=== PATIENT | female | born 1975 | race Caucasian/White ===

== ENCOUNTER 2018-01-20 10:45 | Emergency (ER) | END 2018-01-20 11:59 | disposition home or self-care (01) ==

== ENCOUNTER 2018-03-31 10:14 | Emergency (ER) | END 2018-03-31 12:58 | disposition home or self-care (01) ==

== ENCOUNTER 2018-05-14 09:49 | Emergency (ER) | payer MEDICAID ==
[~2018-05-14] VITALS: Ht 157.5 cm; Wt 85.6 kg
[~2018-05-14 09:49] MED LIST: ALBU8.5H8 INH; BISM262O23 PO; CYCL10TA7 PO; DOCU-144 PO; FER325 PO; HYDR-3498 PO; IBUP-1542 PO; NORE-89 PO; PROM6.2515 PO; TRAM50TA2 PO; ZOF8 PO
[2018-05-14 09:52] VITALS: PULSE 103; Ht 157.5 cm; Wt 85.6 kg
[2018-05-14] MEDS ORDERED: LIDOCAINE/MYLANTA 40 ML BTL PO STA (10:25)
[2018-05-14] MEDS ORDERED: BELLADONNA/PHENOBARBITAL TAB PO STA (10:25)
[2018-05-14] MEDS ORDERED: ACET500C5 PO (12:17)
[2018-05-14] MEDS ORDERED: SUCR1TAB56 PO (12:17)
[2018-05-14 12:41] VITALS: BP 144/83; RESP 18
--- NOTE | 2018-05-14 14:51 | ERD ---
ER Documentation Chief Complaint Chief Complaint EPIGASTRIC PAIN X 3 WEEKS, HX GASTRITIS HPI 43-year-old female presenting with epigastric pain times 3 weeks. Patient states that she has been to help alleviate with gas discomfort however has not no relief. Denies any vomiting. Denies chest pain or shortness of breath. Has had a long history of gastritis and states this feels similar. Denies medical problems. Allergic to morphine. Surgical history denies. Social history denies ROS All systems reviewed and are negative except as per history of present illness. Medications Home Meds Active Scripts Sucralfate* (Carafate*) 1 Gm Tab, 1 GM PO BID, #10 TAB Prov:MEHNAZ RODRIGUEZ PA-C 05/14/18 Acetaminophen* (Tylophen*) 500 Mg Capsule, 1 CAP PO Q6H PRN for PAIN AND OR ELEVATED TEMP, #20 CAP Prov:MEHNAZ RODRIGUEZ PA-C 05/14/18 Promethazine Hcl* (Promethazine Hcl* Syrup) 6.25 Mg/5 Ml Syrup, 6.25 MG PO Q6H PRN for COUGH, #100 ML Prov:MEHNAZ RODRIGUEZ PA-C 03/31/18 Albuterol Sulfate* (Proair HFA*) 8.5 Gm Hfa.aer.ad, 2 PUFF INH Q4, #1 INHALER Prov:MEHNAZ RODRIGUEZ PA-C 03/31/18 Docusate Sodium* (Colace*) 100 Mg Capsule, 100 MG PO TID, #30 CAP Prov:MEHNAZ RODRIGUEZ PA-C 03/31/18 Ferrous Sulfate* (Ferrous Sulfate*) 325 Mg Tabec, 325 MG PO DAILY, #30 TAB Prov:MEHNAZ RODRIGUEZ PA-C 03/31/18 Norethindrone AC-Eth Estradiol (Loestrin 21 1.5-30 Tablet) 1 Each Tablet, 1 EACH PO DAILY, #28 TAB Prov:MEHNAZ RODRIGUEZ PA-C 03/31/18 Cyclobenzaprine Hcl* (Cyclobenzaprine Hcl*) 10 Mg Tablet, 10 MG PO TID, #20 TAB Prov:BONILLA ALBRECHT MD 01/27/16 Tramadol HCl (Tramadol HCl) 50 Mg Tablet, 50 MG PO Q4 PRN for PAIN, #20 TAB Prov:BONILLA ALBRECHT MD 01/27/16 Ibuprofen* (Motrin*) 600 Mg Tab, 600 MG PO Q6, #20 TAB Prov:BONILLA ALBRECHT MD 01/27/16 Ondansetron Hcl* (Zofran* ODT) 8 mg -ODT Tab.disper, 8 MG PO Q6 PRN for NAUSEA AND/OR VOMITING, #8 TAB Prov:BONILLA ALBRECHT MD 10/11/15 Ibuprofen* (Motrin*) 600 Mg Tab, 600 MG PO Q6, #20 TAB Prov:OBNILLA ALBRECHT MD 10/11/15 Bismuth Subsalicylate* (Pepto-Bismol*) 262 Mg/15 Ml Oral.susp, 15 ML PO Q3H PRN for DIARRHEA for 5 Days, ML 8 oz Prov:BONILLA ALBRECHT MD 01/02/15 Ondansetron Hcl* (Zofran* ODT) 8 mg -ODT Tab.disper, 8 MG PO Q6 PRN for NAUSEA AND/OR VOMITING, #8 TAB Prov:BONILLA ALBRECHT MD 01/02/15 Hydrocodone Bit-Acetaminophen* ([place]*) 5-325 Mg Tab, 1 TAB PO Q6 PRN for PAIN, #10 TAB Prov:BONILLA ALBRECHT MD 01/02/15 Allergies Allergies: Coded Allergies: No Known Allergy (Unverified , 01/27/16) PMhx/Soc History of Surgery: Yes (c section) Hx Alcohol Use: No Hx Substance Use: No Hx Tobacco Use: No Smoking Status: Never smoker FmHx Family History: No diabetes, No coronary disease, No other Physical Exam Vitals Vital Signs Date Temp Pulse Resp B/P (MAP) Pulse Ox O2 O2 Flow FiO2 Time Delivery Rate 05/14/18 98.9 18 144/83 100 12:41 (103) 05/14/18 98.9 103 18 144/83 100 09:52 (103) Physical Exam GENERAL: The patient is well-appearing, well-nourished, in no acute distress HEENT: Atraumatic. Conjunctivae are pink. Pupils equal, round, and reactive to light. There is no scleral icterus. Tympanic membranes clear bilaterally. Oropharynx clear. CHEST: Clear to auscultation bilaterally. There are no rales, wheezes or rhonchi. HEART: Regular rate and rhythm. No murmurs, clicks, rubs or gallops. No S3 or S4. ABDOMEN:Soft, nontender and nondistended. Good bowel sounds. No rebound or guarding. No gross peritonitis. No gross organomegaly or masses. Result Diagram: 05/14/18 1039 05/14/18 1039 Results 24 hrs Laboratory Tests Test 05/14/18 10:39 05/14/18 10:40 White Blood Count 8.0 10^3/ul Red Blood Count 4.10 10^6/ul Hemoglobin 8.4 g/dl Hematocrit 29.1 % Mean Corpuscular Volume 71.0 fl Mean Corpuscular Hemoglobin 20.5 pg Mean Corpuscular Hemoglobin Concent 28.9 g/dl Red Cell Distribution Width 16.8 % Platelet Count 558 10^3/UL Mean Platelet Volume 9.5 fl Immature Granulocytes % 0.200 % Neutrophils % 53.8 % Lymphocytes % 34.2 % Monocytes % 6.2 % Eosinophils % 4.5 % Basophils % 1.1 % Nucleated Red Blood Cells % 0.0 /100WBC Immature Granulocytes # 0.020 10^3/ul Neutrophils # 4.3 10^3/ul Lymphocytes # 2.7 10^3/ul Monocytes # 0.5 10^3/ul Eosinophils # 0.4 10^3/ul Basophils # 0.1 10^3/ul Nucleated Red Blood Cells # 0.0 10^3/ul Urine Color YELLOW Urine Clarity SLIGHTLY CLOUDY Urine pH 5.0 Urine Specific [place] 1.020 Urine Ketones NEGATIVE mg/dL Urine Nitrite NEGATIVE mg/dL Urine Bilirubin NEGATIVE mg/dL Urine Urobilinogen NEGATIVE mg/dL Urine Leukocyte Esterase TRACE Aman/ul Urine Microscopic RBC 1 /HPF Urine Microscopic WBC 2 /HPF Urine Squamous Epithelial Cells FEW /HPF Urine Bacteria FEW /HPF Urine Hemoglobin NEGATIVE mg/dL Urine Glucose NEGATIVE mg/dL Urine Total Protein NEGATIVE mg/dl Sodium Level 138 mmol/L Potassium Level 4.0 mmol/L Chloride Level 105 mmol/L Carbon Dioxide Level 23 mmol/L Anion Gap 10 Blood Urea Nitrogen 9 mg/dl Creatinine 0.55 mg/dl Est Glomerular Filtrat Rate mL/min > 60 mL/min Glucose Level 138 mg/dl Calcium Level 9.3 mg/dl Total Bilirubin 0.3 mg/dl Direct Bilirubin 0.00 mg/dl Indirect Bilirubin 0.3 mg/dl Aspartate Amino Transf (AST/SGOT) 21 IU/L Alanine Aminotransferase (ALT/SGPT) 12 IU/L Alkaline Phosphatase 63 IU/L Total Protein 9.0 g/dl Albumin 4.5 g/dl Globulin 4.50 g/dl Albumin/Globulin Ratio 1.00 Lipase 83 U/L POC Beta HCG, Qualitative NEGATIVE Current Medications Medications Dose Sig/Oliver Start Time Status Last (Trade) Ordered Route PRN Stop Time Admin Dose Reason Admin 40 ml ONCE STAT 05/14/18 DC 05/14/18 Miscellaneous PO 10:25 05/14/18 10:43 Medication 10:27 (Gi Cocktail (2)) Belladonna/ 2 tab ONCE STAT 05/14/18 DC 05/14/18 Phenobarbital PO 10:25 05/14/18 10:43 () 10:27 Procedures/MDM DIAGNOSTIC IMAGING REPORT Patient: QUANG CELESTIN : 1975 Age: 43 Sex: F MR #: [id number] DOS: 05/14/18 1025 Ordering MD: FAVIAN RODRIGUEZ PA-C Location: [facility] Room/Bed: PROCEDURE: Complete abdominal ultrasound. CLINICAL INDICATION: Abdominal pain TECHNIQUE: Parry scale and color doppler ultrasound images of the complete abdomen. COMPARISON: US ABDOMEN 01/02/2015 FINDINGS: Pancreas: Not adequately visualized due to overlying bowel gas. Liver: Morphology:Normal in size. Contour:Normal. Echogenicity: Increased Focal lesions:None. Main portal vein: Patent with hepatopetal flow. Biliary System: Gallbladder wall: Normal thickness. Gallstones: None. Intrahepatic bile ducts: Normal caliber. Common bile duct diameter (mm): 3.7 Kidneys: Right length (cm) : Not visualized Left length (cm) : 13.7 Left cortical thickness: Normal. Echogenicity: Normal Hydronephrosis: None. Renal calculi: None. Focal lesions: None. Spleen: Size: Normal. Focal lesions: None. Free fluid/ascites: None. Other findings: None. IMPRESSION: Normal gallbladder without gallstones. Increased echogenicity of the liver parenchyma suggestive of hepatic steatosis. Right kidney not identified. ER Course: GI cocktail given MDM: 43 yr old female complaining of epigastric pain. Patient was given GI cocktail in the ER and reevaluation patient is requesting to leave. Patient states her symptoms have dramatically improved. I have low suspicion for card iac or pulmonary emergency. I have low suspicion for bowel obstruction. I have low suspicion for choledocholithiasis, cholecystitis, cholangitis or pancreatitis. Patient is discharged with strict ER precautions and told to follow-up with primary care within 1-2 days for close evaluation. All questions answered at discharge Departure Diagnosis: Primary Impression: Epigastric pain Condition: Stable Patient Instructions: Epigastric Pain (Uncertain Cause) Referrals: [facility] YOU HAVE RECEIVED A MEDICAL SCREENING EXAM AND THE RESULTS INDICATE THAT YOU DO NOT HAVE A CONDITION THAT REQUIRES URGENT TREATMENT IN THE EMERGENCY DEPARTMENT. FURTHER EVALUATION AND TREATMENT OF YOUR CONDITION CAN WAIT UNTIL YOU ARE SEEN IN YOUR DOCTORS OFFICE WITHIN THE NEXT 1-2 DAYS. IT IS YOUR RESPONSIBILITY TO MAKE AN APPOINTMENT FOR FOLOW-UP CARE. IF YOU HAVE A PRIMARY DOCTOR --you should call your primary doctor and schedule an appointment IF YOU DO NOT HAVE A PRIMARY DOCTOR YOU CAN CALL OUR PHYSICIAN REFERRAL HOTLINE AT IF YOU CAN NOT AFFORD TO SEE A PHYSICIAN YOU CAN CHOSE FROM THE FOLLOWING [facility] [address]. [facility] [address] [facility] [address] [facility] [facility] [address] [facility] [address] [facility] [address] [facility]. [facility]. [address] Additional Instructions: FOLLOW UP WITH YOUR PRIMARY CARE PHYSICIAN TOMORROW.Return to this facility if you are not improving as expected. MEHNAZ RODRIGUEZ PA-C May 14, 2018 14:51
== END 2018-05-14 12:41 | disposition home or self-care (01) ==
LOC: FTE 09:49
DX: R10.13 Epigastric pain (principal)
CPT/HCPCS: 36415; 76705; 80053; 81001; 81025; 83690; 85025; Z7502; Z7610

== ENCOUNTER 2018-09-10 00:56 | Emergency (ER) | payer MEDICAID ==
[~2018-09-10] VITALS: Wt 86.7 kg
[~2018-09-10 00:56] MED LIST changes: +ACET500C5 PO; +SUCR1TAB56 PO
[2018-09-10] MEDS ORDERED: SOD CHLORIDE 0.9% 500 ML IV STA (02:31)
[2018-09-10] MEDS ORDERED: KETOROLAC 15 MG INJ IV STA (02:31)
[2018-09-10] MEDS ORDERED: DICYCLOMINE 20 MG INJ IM ONE (03:00)
--- NOTE | 2018-09-10 03:20 | ERD ---
ER Documentation Chief Complaint Chief Complaint AP X'S 1 DAY HPI During the patient's encounter translation services were utilized Language: Nigerien Source: In person 43-year-old female who presents to the emergency room complaining of abdominal pain. The patient describes approximately 12 hours of abdominal pain that is cramping, worse to the right lower quadrant. The patient describes mild radiation to the lower back. She describes no dysuria urgency or frequency. She denies any chest pain or shortness of breath. Mild nausea but no vomiting. The patient is passing gas and stool without difficulty. ROS All systems reviewed and are negative except as per history of present illness. Medications Home Meds Active Scripts Dicyclomine HCl (Dicyclomine HCl) 10 Mg Capsule, 10 MG PO TID PRN for ABDOMINAL CRAMPING, #20 CAP Prov:JOSIAS DELGADO MD 09/10/18 Reported Medications Omeprazole* (Omeprazole*) 20 Mg Capsule.dr, 20 MG PO BID, #60 CAP 09/10/18 Ibuprofen* (Ibuprofen*) 200 Mg Capsule, 200 MG PO QID PRN for PAIN, CAP 09/10/18 Discontinued Scripts Sucralfate* (Carafate*) 1 Gm Tab, 1 GM PO BID, #10 TAB Prov:MEHNAZ RODRIGUEZ PA-C 05/14/18 Acetaminophen* (Tylophen*) 500 Mg Capsule, 1 CAP PO Q6H PRN for PAIN AND OR ELEVATED TEMP, #20 CAP Prov:MEHNAZ RODRIGUEZ PA-C 05/14/18 Promethazine Hcl* (Promethazine Hcl* Syrup) 6.25 Mg/5 Ml Syrup, 6.25 MG PO Q6H PRN for COUGH, #100 ML Prov:MEHNAZ RODRIGUEZ PA-C 03/31/18 Albuterol Sulfate* (Proair HFA*) 8.5 Gm Hfa.aer.ad, 2 PUFF INH Q4, #1 INHALER Prov:MEHNAZ RODRIGUEZ PA-C 03/31/18 Docusate Sodium* (Colace*) 100 Mg Capsule, 100 MG PO TID, #30 CAP Prov:MEHNAZ RODRIGUEZ PA-C 03/31/18 Ferrous Sulfate* (Ferrous Sulfate*) 325 Mg Tabec, 325 MG PO DAILY, #30 TAB Prov:MEHNAZ RODRIGUEZ PA-C 03/31/18 Norethindrone AC-Eth Estradiol (Loestrin 21 1.5-30 Tablet) 1 Each Tablet, 1 EACH PO DAILY, #28 TAB Prov:MEHNAZ RODRIGUEZ PA-C 03/31/18 Cyclobenzaprine Hcl* (Cyclobenzaprine Hcl*) 10 Mg Tablet, 10 MG PO TID, #20 TAB Prov:BONILLA ALBRECHT MD 01/27/16 Tramadol HCl (Tramadol HCl) 50 Mg Tablet, 50 MG PO Q4 PRN for PAIN, #20 TAB Prov:BONILLA ALBRECHT MD 01/27/16 Ibuprofen* (Motrin*) 600 Mg Tab, 600 MG PO Q6, #20 TAB Prov:BONILLA ALBRECHT MD 01/27/16 Ondansetron Hcl* (Zofran* ODT) 8 mg -ODT Tab.disper, 8 MG PO Q6 PRN for NAUSEA AND/OR VOMITING, #8 TAB Prov:BONILLA ALBRECHT MD 10/11/15 Ibuprofen* (Motrin*) 600 Mg Tab, 600 MG PO Q6, #20 TAB Prov:BONILLA ALBRECHT MD 10/11/15 Bismuth Subsalicylate* (Pepto-Bismol*) 262 Mg/15 Ml Oral.susp, 15 ML PO Q3H PRN for DIARRHEA for 5 Days, ML 8 oz Prov:BONILLA ALBRECHT MD 01/02/15 Ondansetron Hcl* (Zofran* ODT) 8 mg -ODT Tab.disper, 8 MG PO Q6 PRN for NAUSEA AND/OR VOMITING, #8 TAB Prov:BONILLA ALBRECHT MD 01/02/15 Hydrocodone Bit-Acetaminophen* ([place]*) 5-325 Mg Tab, 1 TAB PO Q6 PRN for PAIN, #10 TAB Prov:BONILLA ALBRECHT MD 01/02/15 Allergies Allergies: Coded Allergies: morphine (Unverified Allergy, Unknown, 09/10/18) PMhx/Soc History of Surgery: Yes (c section) Hx Alcohol Use: No Hx Substance Use: No Hx Tobacco Use: No FmHx Family History: No diabetes Physical Exam Vitals Vital Signs Date Temp Pulse Resp B/P (MAP) Pulse Ox O2 O2 Flow FiO2 Time Delivery Rate 09/10/18 98.8 101 20 140/69 100 00:59 (92) Physical Exam General: Uncomfortable Head: Normocephalic, atraumatic. Eyes: Pupils equally reactive, EOM intact ENT: Moist mucous membranes Neck: Supple, no lymphadenopathy Respiratory: Lungs clear bilaterally, no distress Cardiovascular: RRR, no murmurs, rubs, or gallops Abdominal: Soft, mild diffuse tenderness to the abdomen worse to the right lower quadrant : Deferred MSK: No edema, no unilateral swelling, 5/5 strength Neurologic: Alert and oriented, moving all extremities, normal speech, no focal weakness, no cerebellar signs Skin: No rash Psych: Normal mood Result Diagram: 09/10/18 0252 09/10/18 0252 Results 24 hrs Laboratory Tests Test 09/10/18 02:52 09/10/18 04:10 09/10/18 04:16 White Blood Count 8.3 10^3/ul Red Blood Count 4.50 10^6/ul Hemoglobin 8.8 g/dl Hematocrit 31.1 % Mean Corpuscular Volume 69.1 fl Mean Corpuscular Hemoglobin 19.6 pg Mean Corpuscular 28.3 g/dl Hemoglobin Concent Red Cell Distribution Width 20.6 % Platelet Count 354 10^3/UL Mean Platelet Volume 9.9 fl Immature Granulocytes % 0.200 % Neutrophils % 41.3 % Lymphocytes % 41.6 % Monocytes % 7.5 % Eosinophils % 8.1 % Basophils % 1.3 % Nucleated Red Blood Cells % 0.0 /100WBC Immature Granulocytes # 0.020 10^3/ul Neutrophils # 3.4 10^3/ul Lymphocytes # 3.5 10^3/ul Monocytes # 0.6 10^3/ul Eosinophils # 0.7 10^3/ul Basophils # 0.1 10^3/ul Nucleated Red Blood Cells # 0.0 10^3/ul Sodium Level 142 mmol/L Potassium Level 4.3 mmol/L Chloride Level 107 mmol/L Carbon Dioxide Level 25 mmol/L Anion Gap 10 Blood Urea Nitrogen 10 mg/dl Creatinine 0.61 mg/dl Est Glomerular Filtrat > 60 mL/min Rate mL/min Glucose Level 133 mg/dl Calcium Level 9.8 mg/dl Total Bilirubin 0.3 mg/dl Direct Bilirubin 0.00 mg/dl Indirect Bilirubin 0.3 mg/dl Aspartate Amino Transf (AST/SGOT) 24 IU/L Alanine 31 IU/L Aminotransferase (ALT/SGPT) Alkaline Phosphatase 59 IU/L Total Protein 8.2 g/dl Albumin 4.2 g/dl Globulin 4.00 g/dl Albumin/Globulin Ratio 1.05 Lipase 96 U/L Urine Color COLORLESS Urine Clarity CLEAR Urine pH 6.0 Urine Specific [place] 1.003 Urine Ketones NEGATIVE mg/dL Urine Nitrite NEGATIVE mg/dL Urine Bilirubin NEGATIVE mg/dL Urine Urobilinogen NEGATIVE mg/dL Urine Leukocyte Esterase NEGATIVE Aman/ul Urine Hemoglobin NEGATIVE mg/dL Urine Glucose NEGATIVE mg/dL Urine Total Protein NEGATIVE mg/dl POC Beta HCG, Qualitative NEGATIVE Current Medications Medications Dose Sig/Oliver Start Time Status Last (Trade) Ordered Route PRN Stop Time Admin Dose Reason Admin Sodium 500 ml @ Q1H STAT 09/10/18 DC 09/10/18 Chloride 500 mls/hr IV 02:31 09/10/18 03:06 03:30 Ketorolac 15 mg ONCE STAT 09/10/18 DC 09/10/18 Tromethamine IV 02:31 09/10/18 03:06 (Toradol) 02:34 Dicyclomine 10 mg ONCE ONCE 09/10/18 DC 09/10/18 HCl IM 03:00 09/10/18 03:39 (Bentyl) 03:01 Procedures/MDM EKG, MONITORS, & DIAGNOSTIC IMAGING: CT abdomen and pelvis IMPRESSION: 1. Severely atrophic right kidney with a 6 mm cyst. 2. No calcified urinary calculi. No left obstructive uropathy. 3. 2.6 cm left adnexal cyst likely a left ovarian / para ovarian cyst. Follow- up pelvic ultrasound is suggested. 4. Tiny hiatal hernia. 5. Hepatomegaly without focal hepatic lesions. RPTAT:AAJJ LAB INTERPRETATION: I reviewed the laboratory testing and it shows no evidence of acute process MEDICAL DECISION MAKING: The patient presents with approximately 12 hours of abdominal pain with slight localization of the right lower quadrant. Differential is broad but includes acute appendicitis. Consider possible gas and indigestion. The patient however does localize and would benefit from CT imaging of the abdomen pelvis to rule out appendicitis or surgical process. ER COURSE: * CT shows nonspecific atrophy of 1 of the kidneys. Possible adnexal cyst. However the patient's pain is on the opposite side. I do not believe this is consistent with ovarian torsion. These are likely subacute findings. The patient's symptoms are much improved with nonnarcotic pain medication. At this point I feel the patient can be safely discharged. Return precautions were discussed and understood. The patient had a repeat abdominal exam that is benign without localization. * The patient's CT findings were shared with her and her imaging was printed off for follow-up with primary care physician. CONSULTATION: None DISPOSITION PLAN: The patient does not have an identifiable emergent medical condition that warrants inpatient hospitalization at this time. The patient is deemed safe for discharge with outpatient follow-up. We discussed follow up with the patient's primary care doctor within 24 to 48 hours as needed. We also discussed return to the emergency room for worsening symptoms or worsening condition. Outpatient referral: None required Discharge Medications: Bentyl and Zofran Departure Diagnosis: Primary Impression: Abdominal bloating Additional Impression: Generalized abdominal pain Condition: Stable JOSIAS DELGADO MD September 10, 2018 03:20
[2018-09-10] MEDS ORDERED: OMEP20CA16 PO (04:32)
[2018-09-10] MEDS ORDERED: IBUP-1982 PO (04:32)
[2018-09-10] MEDS ORDERED: DICY10CA40 PO (05:13)
[2018-09-10 05:45] VITALS: BP 107/52; PULSE 83; RESP 18
== END 2018-09-10 05:55 | disposition home or self-care (01) ==
LOC: E/R 00:56
DX: R10.31 Right lower quadrant pain (principal); R14.0 Abdominal distension (gaseous)
CPT/HCPCS: 36415; 74176; 80053; 81003; 81025; 83690; 85025; 96372; 96374; J0500; J1885; J7040; Z7502